=== PATIENT | male | born 1980 | race Two or more races ===

== ENCOUNTER 2016-06-17 00:48 | Inpatient (IN) | payer SELFPAY ==
[2016-06-17] MEDS ORDERED: NALOXONE HCL INJ 2 MG/2 ML DISP.SYRIN ONE (01:02)
[2016-06-17] MEDS ORDERED: PROPOFOL 100 ML IV ONE ×2 (01:02→02:54)
[2016-06-17] MEDS ORDERED: EPINEPHRINE INJ/PF 1 MG/1 ML AMPULE ONE (01:05)
[2016-06-17] MEDS ORDERED: EPINEPHRINE INJ 1 MG/10 ML DISP.SYRIN ONE (01:06)
[2016-06-17] MEDS ORDERED: SUCCINYLCHOLINE CHLORIDE INJ 200 MG/10 ML VIAL IV ONE (01:15)
[2016-06-17] MEDS ORDERED: ETOMIDATE INJ/PF 20 MG/10 ML SDV IV ONE (01:15)
[2016-06-17] MEDS ORDERED: NORMAL SALINE 1000 ML 1,000 ML IV PRN ×3 (01:15→02:18)
--- NOTE | 2016-06-17 01:18 | ER Document Report ---
ED General - General Stated Complaint: POSSIBLE OD Time seen by provider: 01:18 Mode of Arrival: Medic Information source: Emergency Med Personnel TRAVEL OUTSIDE OF THE [place] IN LAST 30 DAYS: No - HPI Patient complains to provider of: unresponsive, possible overdose Onset: Just prior to arrival Onset/Duration: Sudden Notes: Patient is a 35-year-old male who was brought to emergency room by EMS unresponsive as a possible overdose of Robaxin, according to EMS patient was acting normally up until about 30 minutes prior to 911 call, when patient's fiance found him with an empty bottle of Robaxin, which was filled in 2015, there was an unknown amount of these pills in the bottle, no family members arrived with patient, therefore additional information was unobtainable - Related Data Allergies/Adverse Reactions: No Known Allergies Allergy (Unverified 02/23/16 19:40) Past Medical History - General Information source: Emergency Med Personnel - Social History Smoking Status: Unknown if Ever Smoked Family History: Reviewed & Not Pertinent Past Surgical History: Reports: Hx Tonsillectomy - Immunizations Hx Diphtheria, Pertussis, Tetanus Vaccination: Yes Review of Systems - Review of Systems -: Yes ROS unobtainable due to patient's medical condition Physical Exam - Vital signs Vitals: Pulse Ox 99 06/17/16 01:18 Interpretation: Tachycardic - General General appearance: Unresponsive In distress: Severe - HEENT Head: Normocephalic, Atraumatic Eyes: Normal Conjunctiva: Normal Eyelashes: Normal Pupils: PERRL Mouth/Lips: Normal Mucous membranes: Normal Pharynx: Normal, Other - Unable to elicit a gag reflex Neck: Normal - Respiratory Respiratory status: Depressed respirations - Cardiovascular Rhythm: Regular, Tachycardia - Abdominal Inspection: Normal Distension: No distension Bowel sounds: Normal - Back Back: Normal - Extremities General upper extremity: Normal inspection General lower extremity: Normal inspection - Neurological Morse Coma Scale Eye Opening: None Britta Coma Scale Verbal: None Morse Coma Scale Motor: None Britta Coma Scale Total: 3 - Skin Skin Temperature: Warm Skin Moisture: Dry Skin Color: Normal Course - Re-evaluation Re-evalutation: 06/17/16 01:36 call to poison control, spoke with Maria M, who recommends supportive care, Robaxin can cause respiratory distress, seizures, treat with benzos as needed 06/17/16 03:59 Patient arrived to the emergency room via EMS unresponsive, I was unable to elicit a pain response doing a firm sternal rub, ammonia was placed under his nose and there was also no response to this, and patient had no gag reflex, therefore he was immediately intubated and eventually admitted to the ICU under the hospitalist service for likely overdose - Vital Signs Vital signs: Temp Pulse Resp BP Pulse Ox 98.4 F 99 06/17/16 03:08 06/17/16 01:18 - Laboratory Result Diagrams: 06/17/16 01:05 06/17/16 01:05 Laboratory results interpreted by me: 06/17/16 06/17/16 06/17/16 01:05 01:05 01:05 WBC 11.5 H Carbonic Acid ABG pH ABG pCO2 ABG pO2 ABG O2 Saturation Glucose 122 H Creatine Kinase 662 H Urine Urobilinogen Salicylates < 1.0 L Acetaminophen < 10 L 06/17/16 06/17/16 01:20 02:00 WBC Carbonic Acid 1.73 H ABG pH 7.21 L ABG pCO2 57.5 H ABG pO2 488.4 H ABG O2 Saturation 99.8 H Glucose Creatine Kinase Urine Urobilinogen 2.0 H Salicylates Acetaminophen - Diagnostic Test Radiology reviewed: Image reviewed, Reports reviewed - EKG Interpretation by Me EKG shows normal: Sinus rhythm Rate: Tachycardia - Transfer of Care Care transferred to following provider: Dr. Morris Procedures - Intubation Orotracheal Time of Intubation: 01:10 Airway evaluation: Copious secretions, Large tongue, Obese Mallampati Classification: Class 4 Medications: Etomidate, Succinylcholine Intubation method: Orotracheal Blade type: Kathie Blade size: 3 Equipment used: Glidescope ETT size: 8.0 ETT secured at: Lips ETT secured at (cm): 24 Breath Sounds after Intubation: Equal End tidal CO2 confirmed: Yes Post Intubation Xray: Yes Intubation Complications: No complications Critical Care Note - Critical Care Note Total time excluding time spent on procedures (mins): 60 Comments: Patient arrived unresponsive, tachycardic, tachypnea, with a GCS of 3, from likely overdose of muscle relaxers Discharge - Discharge Clinical Impression: Overdose Qualifiers: Encounter type: initial encounter Injury intent: undetermined intent Qualified Code(s): T50.904A - Poisoning by unspecified drugs, medicaments and biological substances, undetermined, initial encounter Condition: Critical Disposition: ADMITTED INPATIENT Admitting Provider: Hospitalist Unit Admitted: ICU
[2016-06-17 01:27] LABS: ARTERIAL BLOOD BASE EXCESS -6.3 mmol/L; ARTERIAL BLOOD O2 SATURATION 99.8 % (94-98)
[2016-06-17 01:29] LABS: ABSOLUTE BASOPHILS # (AUTO) 0.1 10^3/uL (0.0-0.2); ABSOLUTE EOSINOPHILS # (AUTO) 0.2 10^3/uL (0.0-0.6); ABSOLUTE LYMPHOCYTES (AUTO) 3.2 10^3/uL (0.5-4.7); ABSOLUTE MONOCYTES (AUTO) 0.7 10^3/uL (0.1-1.4); ABSOLUTE NEUT (AUTO) 7.3 10^3/uL (1.7-8.2); BASOPHILS % (AUTO) 0.5 % (0-2); HEMATOCRIT 49.7 % (37.9-51.0); HEMOGLOBIN 16.7 g/dL (13.5-17.0); HGB HCT DIFFERENCE 0.4; LYMPHOCYTES % (AUTO) 27.8 % (13-45); MEAN CORPUSCULAR HGB CONC 33.6 g/dL (32.0-36.0); MEAN CORPUSCULAR VOLUME 92 fl (80-97); MONOCYTES % (AUTO) 6.3 % (3-13); RED CELL DISTRIBUTION WIDTH 13.6 % (11.5-14.0); SEGMENTED NEUTROPHILS % (AUTO) 63.4 % (42-78); WHITE BLOOD COUNT 11.5 10^3/uL (4.0-10.5)
[2016-06-17 02:02] LABS: CREATINE KINASE MB 3.38 ng/mL (<4.55); TROPONIN I 0.027 ng/mL
[2016-06-17 02:15] LABS: APPEARANCE,URINE CLEAR; BILIRUBIN,URINE NEGATIVE (NEGATIVE); GLUCOSE, URINE NEGATIVE (NEGATIVE); KETONES,URINE NEGATIVE (NEGATIVE); LEUKOCYTE ESTERASE,URINE NEGATIVE (NEGATIVE); NITRITE,URINE NEGATIVE (NEGATIVE); PROTEIN,URINE NEGATIVE (NEGATIVE); URINE SPECIFIC GRAVITY 1.011
[2016-06-17 02:16] LABS: ALANINE AMINOTRANSFERASE 52 U/L (21-72); ALBUMIN 4.2 g/dL (3.5-5.0); ALCOHOL 15 mg/dL (NONE DETECTED); ALKALINE PHOSPHATASE 55 U/L (38-126); ANION GAP 13 (5-19); ASPARTATE AMINO TRANSFERASE 36 U/L (17-59); BILIRUBIN,TOTAL 0.9 mg/dL (0.2-1.3); BLOOD UREA NITROGEN 12 mg/dL (7-20); CALCIUM 9.6 mg/dL (8.4-10.2); CARBON DIOXIDE 24 mmol/L (22-30); CHLORIDE 104 mmol/L (98-107); CREATINE KINASE 662 U/L (55-170); CREATININE RESULT 1.07 mg/dL (0.52-1.25); GLUCOSE 122 mg/dL (75-110); LIPASE 158.7 U/L (23-300); POTASSIUM 3.9 mmol/L (3.6-5.0); SODIUM 140.7 mmol/L (137-145); TOTAL PROTEIN 6.8 g/dL (6.3-8.2)
[2016-06-17] MEDS ORDERED: AMPICILLIN SOD/SULBACTAM 3 GM VIAL IV ONE (02:18)
[2016-06-17 02:36] LABS: URINE BARBITURATES SCREEN NEGATIVE; URINE METHADONE SCREEN NEGATIVE; URINE OPIATES LOW NEGATIVE; URINE PHENCYCLIDINE SCREEN NEGATIVE
[2016-06-17] MEDS ORDERED: ONDANSETRON HCL INJ/PF 4 MG/2 ML SDV IV PRN (03:07)
[2016-06-17] MEDS ORDERED: IPRATROPIUM/ALBUTEROL 0.5-2.5 MG/3 ML AMPUL NEB PRN (03:07)
[2016-06-17] MEDS ORDERED: ACETAMINOPHEN 325 MG TABLET PO PRN (03:07)
[2016-06-17] MEDS ORDERED: NALOXONE HCL INJ/PF 0.4 MG/1 ML SDV IV ONE (03:39)
[2016-06-17] MEDS ORDERED: AMMONIA INHALANTS 10 AMPUL/BOX IH ONE (03:39)
[2016-06-17] MEDS: NORMAL SALINE 1000 ML 1,000 ML IV SCH ×2 (04:38→12:36)
[2016-06-17] MEDS: PROPOFOL 100 ML IV PRN ×4 (05:37→18:22)
[2016-06-17 06:13] LABS: ARTERIAL BLOOD BASE EXCESS -1.8 mmol/L; ARTERIAL BLOOD O2 SATURATION 98.8 % (94-98)
[2016-06-17] MEDS ORDERED: INFLUENZA ADLT QUAD (36MOS+) 2016-17 VAC 0.5 ML SYR IM PRN (06:31)
[2016-06-17 06:33] LABS: ABSOLUTE BASOPHILS # (AUTO) 0.1 10^3/uL (0.0-0.2); ABSOLUTE EOSINOPHILS # (AUTO) 0.2 10^3/uL (0.0-0.6); ABSOLUTE LYMPHOCYTES (AUTO) 2.8 10^3/uL (0.5-4.7); ABSOLUTE MONOCYTES (AUTO) 0.7 10^3/uL (0.1-1.4); ABSOLUTE NEUT (AUTO) 11.6 10^3/uL (1.7-8.2); BASOPHILS % (AUTO) 0.5 % (0-2); EOSINOPHILS % (AUTO) 1.4 % (0-6); HEMATOCRIT 42.5 % (37.9-51.0); LYMPHOCYTES % (AUTO) 18.3 % (13-45); MEAN CORPUSCULAR HEMOGLOBIN 31.1 pg (27.0-33.4); MEAN CORPUSCULAR HGB CONC 34.2 g/dL (32.0-36.0); MEAN CORPUSCULAR VOLUME 91 fl (80-97); MONOCYTES % (AUTO) 4.4 % (3-13); RED BLOOD COUNT 4.67 10^6/uL (4.35-5.55); RED CELL DISTRIBUTION WIDTH 13.6 % (11.5-14.0); SEGMENTED NEUTROPHILS % (AUTO) 75.4 % (42-78); WHITE BLOOD COUNT 15.4 10^3/uL (4.0-10.5)
[2016-06-17 06:48] LABS: HEMOGLOBIN 14.5 g/dL (13.5-17.0)
--- NOTE | 2016-06-17 06:50 | PDOC H&P ---
History of Present Illness Admission Date/PCP: 06/17/16 03:07 Patient complains of: Unresponsive History of Present Illness: AMERICO PORTILLO is a 35 year old male with past medical history of chronic back pain who had been in his usual state of health until approximately 30 minutes prior to EMS arrival patient's fiance found him unresponsive with an empty bottle of Robaxin filled in 2015 with an unknown quantity of tablets missing. Patient was brought to the emergency room for evaluation was unable to protect his airway without gag reflex received IV Narcan without response and was intubated. No evidence of injury family was at bedside briefly but left before contact with staff. Workup is notable for acute hypercapnic respiratory failure. The remainder of the history is unavailable as he is intubated requiring minimal sedation. Past Medical History Musculoskeltal Medical History: Reports: Other - Chronic low back pain Past Surgical History Past Surgical History: Reports: Tonsillectomy Social History Smoking Status: Unknown if Ever Smoked Family History Family History: Other - Unobtainable Parental Family History Reviewed: Yes - unobtainable Children Family History Reviewed: Yes - Unobtainable Sibling(s) Family History Reviewed.: Yes - Unobtainable Medication/Allergy Home Medications: Promethazine HCl [Phenergan 25 mg Tablet] 25 - 50 mg PO ASDIR PRN #12 tablet Oxycodone HCl/Acetaminophen [Percocet 5-325 mg Tablet] 1 - 2 tab PO Q4H PRN #25 tablet 02/24/16 Prednisone [Deltasone 10 mg Tablet] 10 mg PO ASDIR PRN #21 tablet 02/24/16 Allergies/Adverse Reactions: succinylcholine Adverse Reaction (Verified 06/17/16 06:49) Review of Systems ROS unobtainable: Due to mental status - Intubated Physical Exam Vital Signs: Temp Pulse Resp BP Pulse Ox 98.2 F 108 H 14 112/72 100 06/17/16 06:26 06/17/16 05:52 06/17/16 06:26 06/17/16 06:26 06/17/16 06:26 Intake & Output 06/15/16 06/16/16 06/17/16 11:59 11:59 11:59 Output Total 820 Balance -820 Weight 109 kg General appearance: PRESENT: no acute distress, obese, other - Minimal Dried blood about the Ramirez Head exam: PRESENT: atraumatic, normocephalic Eye exam: PRESENT: conjunctiva pink, EOMI, PERRLA. ABSENT: scleral icterus Ear exam: PRESENT: normal external ear exam Mouth exam: PRESENT: moist, tongue midline Neck exam: ABSENT: carotid bruit, JVD, lymphadenopathy, thyromegaly Respiratory exam: PRESENT: clear to auscultation magali. ABSENT: rales, rhonchi, wheezes Cardiovascular exam: PRESENT: RRR. ABSENT: diastolic murmur, rubs, systolic murmur Pulses: PRESENT: normal dorsalis pedis pul Vascular exam: PRESENT: normal capillary refill GI/Abdominal exam: PRESENT: normal bowel sounds, soft. ABSENT: distended, guarding, mass, organolmegaly, rebound, tenderness Rectal exam: PRESENT: deferred Extremities exam: PRESENT: full ROM. ABSENT: calf tenderness, clubbing, pedal edema Neurological exam: PRESENT: other - Intubated with sedation. ABSENT: motor sensory deficit Skin exam: PRESENT: dry, intact, warm. ABSENT: cyanosis, rash Results Laboratory Results: 06/17/16 06:00 Carbonic Acid 1.32 HCO3/H2CO3 Ratio 18:1 ABG pH 7.36 ABG pCO2 43.7 ABG pO2 145.5 H ABG HCO3 23.9 ABG O2 Saturation 98.8 H ABG Base Excess -1.8 FiO2 50% Impressions: Chest X-Ray 06/17/16 01:09 IMPRESSION: Diffuse perihilar parenchymal opacities. Question aspiration complex. SUPPORT DEVICE(S) IN EXPECTED LOCATIONS. Assessment & Plan - Diagnosis (1) Acute hypercapnic respiratory failure Plan: Intubated with supportive measures reevaluation of ABG every 6 hours reevaluation of chest x-ray for possible aspiration (2) Aspiration into airway Qualifiers: Encounter type: initial encounter Qualified Code(s): T17.908A - Unspecified foreign body in respiratory tract, part unspecified causing other injury, initial encounter Is this a current diagnosis for this admission?: YesPlan: Evaluate chest x-ray for aspiration consideration of clindamycin if febrile (3) Overdose Qualifiers: Encounter type: initial encounter Injury intent: undetermined intent Qualified Code(s): T50.904A - Poisoning by unspecified drugs, medicaments and biological substances, undetermined, initial encounter Is this a current diagnosis for this admission?: YesPlan: Salicylate and acetaminophen below detected levels, poison control contacted regarding possible Robaxin overdose recommending supportive care. Strongly consider IVC and mental health consult when extubated - Time Time Spent: 30 to 50 Minutes - Inpatient Certification Medical Necessity: Need Close Monitoring Due to Risk of Patient Decompensation
[2016-06-17 07:10] LABS: ALANINE AMINOTRANSFERASE 48 U/L (21-72); ALKALINE PHOSPHATASE 43 U/L (38-126); ANION GAP 7 (5-19); ASPARTATE AMINO TRANSFERASE 29 U/L (17-59); BILIRUBIN,TOTAL 0.9 mg/dL (0.2-1.3); BLOOD UREA NITROGEN 10 mg/dL (7-20); CALCIUM 8.1 mg/dL (8.4-10.2); CARBON DIOXIDE 22 mmol/L (22-30); CHLORIDE 110 mmol/L (98-107); CREATININE RESULT 0.82 mg/dL (0.52-1.25); GLUCOSE 95 mg/dL (75-110); POTASSIUM 3.6 mmol/L (3.6-5.0); SODIUM 139.3 mmol/L (137-145)
[2016-06-17] MEDS: HEPARIN SOD (PORCINE) 5,000 UNIT/ML 1 ML SYRINGE SUBCUT SCH ×3 (07:27→22:10)
[2016-06-17] MEDS: NORMAL SALINE 1000 ML 1,000 ML IV PRN ×3 (08:39→23:49)
--- NOTE | 2016-06-17 09:51 | PDOC PROGRESS REPORT ---
Subjective Progress Note for:: 06/17/16 Subjective:: Patient is sedated and intubated mechanically ventilated He is quite stable Is oxygenating adequately on 40% FiO2 And hemodynamically stable We had a long conversation with his fiance; patient is legally , has been living with his fiance for the past 4 years They have 2 young children age 2 and 3 Fiance states that he had been injured at work a few months ago, and had severe low back pain secondary to herniated disc He had been staying at home as he couldn't work and became very depressed He does not have a history of chronic alcoholism and or prior suicidal attempts They did have a document last evening, and she left the house to go out When she returned he had taken an overdose and was brought to the ED Physical Exam Vital Signs: Temp Pulse Resp BP Pulse Ox 98.1 F 99 14 100/65 100 06/17/16 08:00 06/17/16 07:17 06/17/16 08:00 06/17/16 07:54 06/17/16 08:32 Intake & Output 06/16/16 06/17/16 06/18/16 00:59 00:59 00:59 Output Total 930 Balance -930 Weight 109 kg General appearance: PRESENT: no acute distress, well-developed, well-nourished Head exam: PRESENT: atraumatic, normocephalic Eye exam: PRESENT: conjunctiva pink, EOMI, PERRLA. ABSENT: scleral icterus Neck exam: ABSENT: carotid bruit, JVD, lymphadenopathy, thyromegaly Respiratory exam: PRESENT: clear to auscultation magali. ABSENT: rales, rhonchi, wheezes Pulses: PRESENT: normal dorsalis pedis pul GI/Abdominal exam: PRESENT: normal bowel sounds, soft. ABSENT: distended, guarding, mass, organolmegaly, rebound, tenderness Extremities exam: PRESENT: full ROM. ABSENT: calf tenderness, joint swelling, + 1 edema Results Laboratory Results: 06/17/16 06:22 06/17/16 06:22 06/17/16 06/17/16 06/17/16 06:00 06:22 06:22 WBC 15.4 H RBC 4.67 Hgb 14.5 D Hct 42.5 MCV 91 MCH 31.1 MCHC 34.2 RDW 13.6 Plt Count 273 Seg Neutrophils % 75.4 Lymphocytes % 18.3 Monocytes % 4.4 Eosinophils % 1.4 Basophils % 0.5 Absolute Neutrophils 11.6 H Absolute Lymphocytes 2.8 Absolute Monocytes 0.7 Absolute Eosinophils 0.2 Absolute Basophils 0.1 Carbonic Acid 1.32 HCO3/H2CO3 Ratio 18:1 ABG pH 7.36 ABG pCO2 43.7 ABG pO2 145.5 H ABG HCO3 23.9 ABG O2 Saturation 98.8 H ABG Base Excess -1.8 FiO2 50% Sodium 139.3 Potassium 3.6 Chloride 110 H Carbon Dioxide 22 Anion Gap 7 BUN 10 Creatinine 0.82 Est GFR ( Amer) > 60 Est GFR (Non-Af Amer) > 60 Glucose 95 Calcium 8.1 L Total Bilirubin 0.9 AST 29 ALT 48 Alkaline Phosphatase 43 Total Protein 5.0 L Albumin 3.0 L Impressions: Chest X-Ray 06/17/16 01:09 IMPRESSION: Diffuse perihilar parenchymal opacities. Question aspiration complex. SUPPORT DEVICE(S) IN EXPECTED LOCATIONS. Status: Imported from PACS Assessment & Plan - Diagnosis (1) Depression Qualifiers: Major depression episode severity: unspecified Is this a current diagnosis for this admission?: YesPlan: Patient will need a psych evaluation when he is medically cleared (2) Aspiration pneumonia Qualifiers: Aspiration pneumonia type: unspecified Laterality: unspecified laterality Lung location: unspecified part of lung Qualified Code(s) : J69.0 - Pneumonitis due to inhalation of food and vomit Is this a current diagnosis for this admission?: YesPlan: We will treat it was clindamycin IV (3) Acute hypercapnic respiratory failure Is this a current diagnosis for this admission?: YesPlan: Patient is still intubated mechanically ventilated Continue ventilatory support until a.m. Reevaluate patient then for extubation (4) Overdose Qualifiers: Encounter type: initial encounter Injury intent: undetermined intent Qualified Code(s): T50.904A - Poisoning by unspecified drugs, medicaments and biological substances, undetermined, initial encounter Is this a current diagnosis for this admission?: Yes - Time Critical Time spent with patient: 25-34 minutes
[2016-06-17] MEDS ORDERED: DOCUSATE SODIUM 100 MG/10 ML UDC NG SCH (10:00)
[2016-06-17] MEDS: CLINDAMYCIN 600 MG/D5W RTU 600 MG/50 ML RTUPB IV SCH ×2 (10:28→17:09)
[2016-06-17] MEDS: PANTOPRAZOLE SODIUM 40 MG VIAL IV SCH (10:28)
[2016-06-17] MEDS ORDERED: SUCCINYLCHOLINE CHLORIDE INJ 200 MG/10 ML VIAL ONE (11:02)
[2016-06-17] MEDS ORDERED: NORMAL SALINE 1000 ML 1,000 ML IV ONE (16:03)
[2016-06-17] MEDS: FENTANYL CITRATE INJ/PF 100 MCG/2 ML AMPUL IV PRN ×2 (16:38→23:15)
[2016-06-18] MEDS: PROPOFOL 100 ML IV PRN ×2 (01:03→05:30)
[2016-06-18] MEDS: CLINDAMYCIN 600 MG/D5W RTU 600 MG/50 ML RTUPB IV SCH ×2 (02:44→10:25)
[2016-06-18 05:00] LABS: ABSOLUTE BASOPHILS # (AUTO) 0.1 10^3/uL (0.0-0.2); ABSOLUTE EOSINOPHILS # (AUTO) 0.4 10^3/uL (0.0-0.6); ABSOLUTE LYMPHOCYTES (AUTO) 2.4 10^3/uL (0.5-4.7); ABSOLUTE MONOCYTES (AUTO) 0.6 10^3/uL (0.1-1.4); ABSOLUTE NEUT (AUTO) 5.9 10^3/uL (1.7-8.2); BASOPHILS % (AUTO) 0.6 % (0-2); EOSINOPHILS % (AUTO) 4.4 % (0-6); HEMATOCRIT 40.2 % (37.9-51.0); HEMOGLOBIN 13.3 g/dL (13.5-17.0); HGB HCT DIFFERENCE -0.3; LYMPHOCYTES % (AUTO) 25.6 % (13-45); MEAN CORPUSCULAR HEMOGLOBIN 30.7 pg (27.0-33.4); MEAN CORPUSCULAR HGB CONC 33.1 g/dL (32.0-36.0); MEAN CORPUSCULAR VOLUME 93 fl (80-97); MONOCYTES % (AUTO) 6.6 % (3-13); RED BLOOD COUNT 4.33 10^6/uL (4.35-5.55); RED CELL DISTRIBUTION WIDTH 13.9 % (11.5-14.0); SEGMENTED NEUTROPHILS % (AUTO) 62.8 % (42-78); WHITE BLOOD COUNT 9.5 10^3/uL (4.0-10.5)
[2016-06-18 05:01] LABS: ARTERIAL BLOOD BASE EXCESS -4.2 mmol/L; ARTERIAL BLOOD O2 SATURATION 95.2 % (94-98)
[2016-06-18 05:14] LABS: ALANINE AMINOTRANSFERASE 39 U/L (21-72); ALBUMIN 2.7 g/dL (3.5-5.0); ALKALINE PHOSPHATASE 43 U/L (38-126); ANION GAP 8 (5-19); ASPARTATE AMINO TRANSFERASE 21 U/L (17-59); BILIRUBIN,TOTAL 0.7 mg/dL (0.2-1.3); BLOOD UREA NITROGEN 9 mg/dL (7-20); CALCIUM 8.2 mg/dL (8.4-10.2); CARBON DIOXIDE 20 mmol/L (22-30); CHLORIDE 113 mmol/L (98-107); CREATININE RESULT 0.86 mg/dL (0.52-1.25); GLUCOSE 80 mg/dL (75-110); POTASSIUM 3.7 mmol/L (3.6-5.0); SODIUM 140.8 mmol/L (137-145); TOTAL PROTEIN 4.8 g/dL (6.3-8.2)
[2016-06-18] MEDS: HEPARIN SOD (PORCINE) 5,000 UNIT/ML 1 ML SYRINGE SUBCUT SCH ×3 (05:30→21:31)
[2016-06-18] MEDS: NORMAL SALINE 1000 ML 1,000 ML IV PRN (05:31)
--- NOTE | 2016-06-18 08:38 | EKG REPORT ---
SEVERITY:- OTHERWISE NORMAL ECG - SINUS TACHYCARDIA : Confirmed by: Raúl Rivera 18-Jun-2016 08:37:21
[2016-06-18] MEDS: PANTOPRAZOLE SODIUM 40 MG VIAL IV SCH (10:26)
--- NOTE | 2016-06-18 16:27 | PDOC PROGRESS REPORT ---
Subjective Progress Note for:: 06/18/16 Subjective:: Patient was extubated this morning without any complications patient is now alert awake Oxygenation is adequate on room air He is cooperative speaking was made with his family Physical Exam Vital Signs: Temp Pulse Resp BP Pulse Ox 99.3 F 92 31 H 122/83 96 06/18/16 15:00 06/18/16 08:50 06/18/16 15:00 06/18/16 13:26 06/18/16 15:00 Intake & Output 06/17/16 06/18/16 06/19/16 00:59 00:59 00:59 Intake Total 4023 3824 Output Total 1770 7015 Balance 2253 1249 Weight 109 kg 113.7 kg General appearance: PRESENT: no acute distress, well-developed, well-nourished Head exam: PRESENT: atraumatic, normocephalic Eye exam: PRESENT: conjunctiva pink, EOMI, PERRLA. ABSENT: scleral icterus Neck exam: ABSENT: carotid bruit, JVD, lymphadenopathy, thyromegaly Respiratory exam: PRESENT: clear to auscultation magali. ABSENT: rales, rhonchi, wheezes Cardiovascular exam: PRESENT: RRR. ABSENT: diastolic murmur, rubs, systolic murmur Pulses: PRESENT: normal dorsalis pedis pul GI/Abdominal exam: PRESENT: normal bowel sounds, soft. ABSENT: distended, guarding, mass, organolmegaly, rebound, tenderness Neurological exam: PRESENT: alert, awake, oriented to person, oriented to place , oriented to time, oriented to situation, CN II-XII grossly intact. ABSENT: motor sensory deficit Results Laboratory Results: 06/18/16 04:45 06/18/16 04:45 06/18/16 06/18/16 06/18/16 04:45 04:45 04:45 WBC 9.5 RBC 4.33 L Hgb 13.3 L Hct 40.2 MCV 93 MCH 30.7 MCHC 33.1 RDW 13.9 Plt Count 239 Seg Neutrophils % 62.8 Lymphocytes % 25.6 Monocytes % 6.6 Eosinophils % 4.4 Basophils % 0.6 Absolute Neutrophils 5.9 Absolute Lymphocytes 2.4 Absolute Monocytes 0.6 Absolute Eosinophils 0.4 Absolute Basophils 0.1 Carbonic Acid 1.18 HCO3/H2CO3 Ratio 17:1 ABG pH 7.35 ABG pCO2 39.3 ABG pO2 79.4 L ABG HCO3 21.0 ABG O2 Saturation 95.2 ABG Base Excess -4.2 FiO2 25% Sodium 140.8 Potassium 3.7 Chloride 113 H Carbon Dioxide 20 L Anion Gap 8 BUN 9 Creatinine 0.86 Est GFR ( Amer) > 60 Est GFR (Non-Af Amer) > 60 Glucose 80 Calcium 8.2 L Total Bilirubin 0.7 AST 21 ALT 39 Alkaline Phosphatase 43 Total Protein 4.8 L Albumin 2.7 L Impressions: Chest X-Ray 06/18/16 06:00 IMPRESSION: Endotracheal and nasogastric tubes in good positioning. Mild persistent left upper perihilar airspace disease Assessment & Plan - Diagnosis (1) Depression Qualifiers: Major depression episode severity: unspecified Is this a current diagnosis for this admission?: YesPlan: Patient to be evaluated by psychiatry Major depressive disorder likely with suicidal attempt (2) Aspiration pneumonia Qualifiers: Aspiration pneumonia type: unspecified Laterality: unspecified laterality Lung location: unspecified part of lung Qualified Code(s) : J69.0 - Pneumonitis due to inhalation of food and vomit Is this a current diagnosis for this admission?: YesPlan: Continue clindamycin We'll change to clindamycin by mouth (3) Acute hypercapnic respiratory failure Is this a current diagnosis for this admission?: YesPlan: Secondary to altered mental status , drug overdose and aspiration pneumonia Respiratory status has improved dramatically Patient has been extubated and is now almost totally asymptomatic (4) Overdose Qualifiers: Encounter type: initial encounter Injury intent: undetermined intent Qualified Code(s): T50.904A - Poisoning by unspecified drugs, medicaments and biological substances, undetermined, initial encounter Is this a current diagnosis for this admission?: Yes (5) Involuntary commitment Is this a current diagnosis for this admission?: YesPlan: Patient to be evaluated by psychiatry for inpatient psychiatry transfer He is now medically cleared - Time Time Spent with patient: We'll transfer the patient to medical unit Did sign involuntary commitment papers Patient to be evaluated by psychiatry prior to disposition Time Spent with patient: 25-34 minutes
[2016-06-18] MEDS: LACTOBACILLUS ACIDOPHILUS 250 MG TAB PO SCH (18:01)
[2016-06-18] MEDS: CLINDAMYCIN HCL 150 MG CAPSULE PO SCH ×2 (18:01→23:29)
[2016-06-19] MEDS: HEPARIN SOD (PORCINE) 5,000 UNIT/ML 1 ML SYRINGE SUBCUT SCH ×2 (05:17→15:29)
[2016-06-19] MEDS: CLINDAMYCIN HCL 150 MG CAPSULE PO SCH ×2 (05:19→12:39)
[2016-06-19 05:31] LABS: ABSOLUTE BASOPHILS # (AUTO) 0.1 10^3/uL (0.0-0.2); ABSOLUTE EOSINOPHILS # (AUTO) 0.6 10^3/uL (0.0-0.6); ABSOLUTE LYMPHOCYTES (AUTO) 3.3 10^3/uL (0.5-4.7); ABSOLUTE MONOCYTES (AUTO) 0.7 10^3/uL (0.1-1.4); ABSOLUTE NEUT (AUTO) 5.5 10^3/uL (1.7-8.2); BASOPHILS % (AUTO) 0.7 % (0-2); EOSINOPHILS % (AUTO) 6.2 % (0-6); HEMATOCRIT 43.3 % (37.9-51.0); HEMOGLOBIN 14.7 g/dL (13.5-17.0); HGB HCT DIFFERENCE 0.8; LYMPHOCYTES % (AUTO) 32.5 % (13-45); MEAN CORPUSCULAR HEMOGLOBIN 31.3 pg (27.0-33.4); MEAN CORPUSCULAR VOLUME 92 fl (80-97); MONOCYTES % (AUTO) 6.8 % (3-13); RED BLOOD COUNT 4.71 10^6/uL (4.35-5.55); RED CELL DISTRIBUTION WIDTH 13.9 % (11.5-14.0); SEGMENTED NEUTROPHILS % (AUTO) 53.8 % (42-78); WHITE BLOOD COUNT 10.3 10^3/uL (4.0-10.5)
[2016-06-19] MEDS: LACTOBACILLUS ACIDOPHILUS 250 MG TAB PO SCH (09:59)
[2016-06-19] MEDS: PANTOPRAZOLE SODIUM 40 MG VIAL IV SCH (09:59)
--- NOTE | 2016-06-19 15:38 | PDOC DISCHARGE SUMMARY ---
General - Admit/Disc Date/PCP Admission Date/Primary Care Provider: 06/17/16 03:07 Discharge Date: 06/19/16 - Discharge Diagnosis (1) Acute hypercapnic respiratory failure Is this a current diagnosis for this admission?: YesSummary: Likely directly related to sedation from the medication taken. He was briefly intubated, easily extubated and has not shown any signs of persistent hypercapnia. (2) Aspiration pneumonia Is this a current diagnosis for this admission?: YesSummary: Likely occurred during the acute episode. Has been treated with clindamycin while in-house, we'll sent home to finish a ten-day course of Augmentin. He has easily and successfully weaned off supplemental O2. (3) Depression Is this a current diagnosis for this admission?: YesSummary: Arrangements made through the social work associate for outpatient mental health care and treatment. I am hesitant to add a new medication to his regimen, preferring to defer to those who will see him routinely in follow-up. Many of the antidepressants have increased risk of worsening depression during the initial titration timeframe. (4) Involuntary commitment Is this a current diagnosis for this admission?: YesSummary: I do not see a clear indication that he is a threat to himself or others. On the day of discharge I found him smiling and laughing with his children in the room, dancing to music on his phone with his infant son at the bedside, remorseful as to the outcome of his choices and clearly stating no intent to harm self. His fiance confirms he has no prior history of similar events and reassures me he made a terrible mistake and was only trying to alleviate his back pain by getting into her mother's medications, consuming something he was unfamiliar with and had an adverse reaction to as a result. She assures me those medications have been secured. She assures me that he adores their children and would never willing give them up by suicide or harm them or her, she feels safe taking him home. She reiterates his need for ongoing mental health counseling to help with his depression and she will make sure he keeps his appointments. Arrangements made for outpt f/u prior to d/c. she expresses no reservations about taking him home at this time. he repeatedly denies any attempt to harm himself, expressing his remorse for "putting everybody through this", that he never intended harm was only hoping for some relief from his pain but not at the expense of his life or functionality. (5) Overdose Is this a current diagnosis for this admission?: Yes - Additional Information Resuscitation Status: Full Code Discharge Diet: As Tolerated Discharge Activity: Activity As Tolerated Home Medications: Acetaminophen [Tylenol 325 mg Tablet] 650 mg PO Q4HP PRN tablet 06/19/16 Amox Tr/Potassium Clavulanate [Augmentin 875-125 mg Tablet] 1 tab PO BID #20 tablet 06/19/16 History of Present Illness Patient complains of: obtunded History of Present Illness: AMERICO PORTILLO is a 35 year old male with past medical history of chronic back pain who had been in his usual state of health until approximately 30 minutes prior to EMS arrival patient's fiance found him unresponsive with an empty bottle of Robaxin filled in 2015 with an unknown quantity of tablets missing. Patient was brought to the emergency room for evaluation was unable to protect his airway without gag reflex received IV Narcan without response and was intubated. No evidence of injury family was at bedside briefly but left before contact with staff. Workup is notable for acute hypercapnic respiratory failure. The remainder of the history is unavailable as he is intubated requiring minimal sedation. Hospital Course Hospital Course: He was admitted to the hospital for continued supportive care, demonstrated some evidence of probable aspiration pneumonia which was treated with appropriate antibiotics, was successfully and easily extubated without complication or recurrence of respiratory difficulties. He has not required supplemental oxygen over 24 hours. He is afebrile and shows no evidence of a marked leukocytosis to suggest ongoing, undertreated infection. At this point he is medically stable for discharge. Physical Exam Vital Signs: Temp Pulse Resp BP Pulse Ox 97.9 F 83 20 133/81 H 99 06/19/16 10:25 06/19/16 10:25 06/19/16 10:25 06/19/16 10:25 06/19/16 10:25 Intake & Output 06/18/16 06/19/16 06/20/16 06:59 06:59 06:59 Intake Total 4959 9545 672 Output Total 1321 2800 Balance 5122 -643 672 Weight 113.7 kg 109.6 kg EXAM GENERAL: NAD; well developed, well nourished; no obese; alert and oriented to person, place, time, situation HEENT: normocephalic, atraumatic; no conjunctival injection, no scleral icterus ; oral mucosa moist; RESPIRATORY: no accessory muscle use, no increased WOB, good air entry bilaterally; no wheezes, rales, rhonchi; no inspiratory crackles CARDIO: no JVD; RRR; no systolic murmur; no tachycardia GI: soft; nondistended; normal bowel sounds; no hepato spleno megaly; no rebound, rigidity, guarding VASCULAR: no carotid bruit; no abdominal bruit; no pallor; 2+ radial, DP pulse ; normal capillary refill EXTREMITIES: no calf tender; no palpable cords in calf; no clubbing, cyanosis , pedal edema PSYCH: normal affect, normal mood SKIN: warm; moist; no petechiae; no telengectasias; no jaundice; no rash Results Laboratory Results: 06/19/16 05:00 06/18/16 04:45 06/19/16 05:00 WBC 10.3 RBC 4.71 Hgb 14.7 Hct 43.3 MCV 92 MCH 31.3 MCHC 34.0 RDW 13.9 Plt Count 272 Seg Neutrophils % 53.8 Lymphocytes % 32.5 Monocytes % 6.8 Eosinophils % 6.2 H Basophils % 0.7 Absolute Neutrophils 5.5 Absolute Lymphocytes 3.3 Absolute Monocytes 0.7 Absolute Eosinophils 0.6 Absolute Basophils 0.1 06/17/16 07:45 Tracheal Aspirate Gram Stain - Final Impressions: Chest X-Ray 06/18/16 06:00 IMPRESSION: Endotracheal and nasogastric tubes in good positioning. Mild persistent left upper perihilar airspace disease Qualifiers PATEINT BEING DISCHARGED WITH ANY OF THE FOLLOWING DIAGNOSIS?: No VTE patient discharged on overlapping Therapy?: Yes Plan Discharge Plan: Discharge home and back in the care of his family with close outpatient mental health follow-up as arranged by social work associate prior to discharge. Time Spent: Greater than 30 Minutes
[2016-06-19 16:09] VITALS: BP 133/76
--- NOTE | 2016-06-20 09:24 | PSYCHOLOGICAL NOTE ---
Psych Note - Psych Note Psych Note: Patient is a 35 year old male who has [facility] due to an overdose. Patient was referred for psychiatric consultation; however , per Hospitalists, this consultation was no longer needed. Patient was discharged. Thank you kindly for this consultation.
== END 2016-06-19 16:15 | disposition home or self-care (01) | DRG 917 ==
LOC: ER 00:48 → EH 03:07 → UNDOADMIN 03:10 → EH 03:10 → ICU 05:15 → EH 05:15 → 4W 06-18 20:47
PROVIDERS: ADMIT Internal Medicine; ATTEND Internal Medicine
PROC: 0BH17EZ Insertion of Endotracheal Airway into Trachea, Via Natural or Artificial Opening (ICD-10-PCS; principal; 2016-06-17)
PROC: 5A1935Z Respiratory Ventilation, Less than 24 Consecutive Hours (ICD-10-PCS; 2016-06-17)
DX: T42.8X1A Poisoning by antiparkinsonism drugs and other central muscle-tone depressants, accidental (unintentional), initial encounter (principal); J96.02 Acute respiratory failure with hypercapnia; J69.0 Pneumonitis due to inhalation of food and vomit; F32.9 Major depressive disorder, single episode, unspecified; R41.82 Altered mental status, unspecified; M54.5 Low back pain; Y92.009 Unspecified place in unspecified non-institutional (private) residence as the place of occurrence of the external cause
CPT/HCPCS: 36415; 51702; 71010; 80053; 80307; 81001; 82550; 82553; 82803; 83690; 83880; 84484; 85025; 87040; 87070; 87077; 87086; 87205; 90686; 93005; 93010; 94002; 94003; 94640; 96361; 96374; 99291; J0295; J0330; J1644; J2310; J2704; J3010; J7030; J7620; S0164